=== PATIENT | female | born 1950 | race Caucasian/White ===

== ENCOUNTER → 2017-07-30 | Outpatient (CLI) | payer MEDICARE, BC ==
[~2017-07-30] MED LIST: TRIAMTERENE-HC1 EACH; ZESTRIL10 MG PO
--- NOTE | ~2017-07-30 | MY29 ---
[facility] A Service of [facility] / [facility] RADIOLOGY TEXT RESULTS PATIENT: CHARISSE HA LOCATION: [facility] : 46 UNIT #: [id number] AGE: [address]: Pollo Lyon MD SEX: F ORDER DR: [id number] [facility] [address] [place], [place] [address] [id number] O MR#: [id number] Acc #: [id number] NAME: CHARISSE HA : 1950 SEX: F STUDY DATE/TIME: 07/30/2017 12:47 UNIT: [facility] ROOM: STUDY DESCRIPTION: MY UMM SCREENING W/ CAD BILAT Attending Physician: Pollo Lyno M.D. Referring Physician: Pollo Lyon M.D. Ordering Physician: Pollo Lyon M.D. Primary Care Physician: Pollo Lyon M.D. MEDICAL IMAGING REPORT This report is preliminary unless electronic signature is present EXAM Digital screening mammogram 07/30/2017 HISTORY 66-year-old woman, no risk elevation. Annual screen. COMPARISON Mammograms date to 03/22/2007, with most recent 07/07/2016. FINDINGS Digital imaging of each breast was completed utilizing a two-view examination of each breast in craniocaudal and mediolateral-oblique projections. Review and interpretation of digital mammograms include a second review in conjunction with FDA-approved CAD device. There is a normal parenchymal presentation bilaterally consistent with the patient's age. There are no breast masses imaged and no parenchymal asymmetry is visualized. There are no suspicious microcalcifications and I see no focal architectural disturbance. IMPRESSION Negative screening digital mammogram. One-year followup recommended. Patients over the age of 40 are entered into a reminder system with target due date for the next mammogram. A result letter will also be sent to the patient. BIRADS: 1 Negative Dictated by... Dwight Mejia M.D. [facility] A Service [facility] RADIOLOGY TEXT RESULTS PATIENT: CHARISSE HA LOCATION: [facility] : 46 UNIT #: [id number] AGE: [address]: Pollo Lyon MD SEX: F ORDER DR: THIS IS AN ELECTRONICALLY VERIFIED REPORT Dwight Mejia M.D. at 08/01/2017 12:02 PM SOM/oseas TD: 07/30/2017 15:43 JOB #: [id number] MEDICAL IMAGING REPORT Page 1 of 1 COPY
== END | disposition home or self-care (01) ==
LOC: CWCC 12:19
DX: Z12.31 Encounter for screening mammogram for malignant neoplasm of breast (principal); R01.1 Cardiac murmur, unspecified; I51.7 Cardiomegaly; I35.8 Other nonrheumatic aortic valve disorders; I36.1 Nonrheumatic tricuspid (valve) insufficiency
CPT/HCPCS: 93306; G0202